=== PATIENT | male | born 1980 | race Caucasian/White ===

== ENCOUNTER 2018-09-19 11:36 | Emergency (ER) | payer OTHER ==
[2018-09-19 11:55] VITALS: BP 110/77; PULSE 89; TEMP 98.1; BMI 27.3
[2018-09-19] MEDS ORDERED: DIPHTH,PERTUSS(ACELL),TET 0.5 ML DISP.SYRIN IM ONE ×2 (11:58→12:00)
--- NOTE | 2018-09-19 12:23 | PDOC ---
History of Present Illness - General Chief Complaint: Laceration Stated Complaint: LF FINGER INJURY Time Seen by Provider: 09/19/18 11:57 - History of Present Illness Initial Comments: 09/19/18 12:23 37-year-old male was working with a razor blade removing hypoxia from a windshield at his job when he lacerated his left fifth finger. He is not current on tetanus. Past History - Past Medical History Allergies/Adverse Reactions: Allergies Allergy/AdvReac Type Severity Reaction Status Date / Time Penicillins Allergy Verified 09/19/18 11:58 Home Medications: Ambulatory Orders NK [No Known Home Medication] 09/19/18 COPD: No - Surgical History Cholecystectomy: Yes - Suicide/Smoking/Psychosocial Hx Smoking History: Never smoked Hx Alcohol Use: No Drug/Substance Use Hx: No Review of Systems - Review of Systems Musculoskeletal: Yes: See HPI *Physical Exam - Vital Signs Last Vital Signs Temp Pulse Resp BP Pulse Ox 98.1 F 89 18 110/77 98 09/19/18 11:49 09/19/18 11:49 09/19/18 11:49 09/19/18 11:49 09/19/18 11:49 - Physical Exam Comments: 09/19/18 12:23 There is a jagged laceration on the dorsum of the left fifth finger overlying the PIPJ. There are no gross sensorimotor deficits. Subcutaneous fat is exposed. The laceration is approximately 2 cm in length. ED Treatment Course - Medications Given in the ED: ED Medications Discontinued Medications Generic Name Dose Route Start Last Admin Trade Name Freq PRN Reason Stop Dose Admin Diphtheria/Tetanus/Acell Pertussis 0.5 ml 09/19/18 11:58 09/19/18 12:02 Boostrix - IM 09/19/18 11:59 0.5 ml .ONCE ONE Administration Medical Decision Making - Medical Decision Making 09/19/18 12:21 Under aseptic technique 6 mL of 1% lidocaine without epinephrine was used for digital block. This was tolerated well the wound was copiously irrigated explored to its base in a bloodless field there was no foreign body identified. 5 interrupted 4-0 Prolene sutures were used in a simple fashion to close the wound and approximate the edges. A dry sterile dressing was placed. This was tolerated well. *DC/Admit/Observation/Transfer Diagnosis at time of Disposition: Laceration - Discharge Dispostion Disposition: HOME Condition at time of disposition: Stable Decision to Admit order: No - Referrals Referrals: Guero Oliveira MD [Staff Physician] - - Patient Instructions Printed Discharge Instructions: DI for Laceration Repair Additional Instructions: Keep the wound clean and dry for the next 48 hours and leave the dressing on. After 48 hours you may remove the dressing wash the area with soap and water and leave the area open to air. If you must work please cover the area with a Band-Aid and sterile dressing and wear a glove. Remove the glove and Band-Aid from time to time throughout the day and allow the wound to dry. Do not put any acid tracing or Neosporin on the wound. Return to the emergency room in 10 days for suture removal he may also follow-up with hand surgery for wound checks. Return to the emergency room sooner should problems develop such as redness drainage swelling or increasing pain around the area. Tylenol and Motrin as directed for pain. - Post Discharge Activity
== END 2018-09-19 12:31 | disposition home or self-care (01) ==
LOC: JERFT 11:36
PROC: 3E0234Z Introduction of Serum, Toxoid and Vaccine into Muscle, Percutaneous Approach (ICD-10-PCS; principal; 2018-09-19)
PROC: 0JQK0ZZ Repair Left Hand Subcutaneous Tissue and Fascia, Open Approach (ICD-10-PCS; 2018-09-19)
DX: S61.217A Laceration without foreign body of left little finger without damage to nail, initial encounter (principal); W27.8XXA Contact with other nonpowered hand tool, initial encounter; Y93.89 Activity, other specified; Y92.69 Other specified industrial and construction area as the place of occurrence of the external cause; Y99.0 Civilian activity done for income or pay
CPT/HCPCS: 90715; 99281-25